=== PATIENT | female | born 2000 | race Caucasian/White ===

== ENCOUNTER 2020-11-17 23:46 | Emergency (ER) | payer OTHER, SELFPAY ==
--- NOTE | ~2020-11-17 | US_ITS ---
EXAMINATION: US ABDOMEN LIMITED CLINICAL INFORMATION: Epigastric abdominal pain.. COMPARISON: None TECHNIQUE: Real-time imaging of the gallbladder. FINDINGS: There is a stone within the dependent gallbladder. No gallbladder wall thickening. Sonographic Cassidy sign is positive. US/US abdomen limited IMPRESSION: Cholelithiasis. No imaging evidence of cholecystitis. The positive sonographic Cassidy sign in the setting is nonspecific.
--- NOTE | ~2020-11-17 | CT_ITS ---
EXAMINATION: CT ABDOMEN AND PELVIS WITH CONTRAST CLINICAL INFORMATION: Epigastric abdominal pain COMPARISON: None TECHNIQUE: Multidetector volumetric images were obtained from the superior aspect of the liver through the pubic symphysis following administration 85 mL of Omnipaque 350 intravenous contrast. Sagittal and coronal reformatted images were obtained on the technologist's workstation. Oral contrast: No This CT examination was performed using dose optimization techniques as appropriate, variously including the following: *Automated exposure control *Adjustment of mA and/or kV according to patient size (this includes techniques or standardized protocols for targeted exams where dose is matched to indication/reason for exam; i.e. extremities or head) *Use of iterative reconstruction technique DLP: 1544 mGy-cm FINDINGS: LUNG BASES: The visualized lung bases are unremarkable. LIVER, GALLBLADDER, AND BILIARY TREE: The liver is normal in size, shape, and attenuation. No focal hepatic lesion or biliary ductal dilatation is present. Cholelithiasis. No pericholecystic fluid. PANCREAS: Unremarkable. SPLEEN: Unremarkable. ADRENAL GLANDS: Unremarkable. KIDNEYS AND URETERS: The kidneys are normal in size, shape, and attenuation. No hydronephrosis, hydroureter. Curvilinear calcification present in the lower pole of the LEFT kidney. No perinephric stranding. BLADDER: Unremarkable. GASTROINTESTINAL TRACT: The small and large bowel are unremarkable. The appendix is unremarkable. ABDOMINAL WALL: No significant hernia is appreciated. LYMPH NODES: Normal. VASCULAR: Unremarkable. PELVIC VISCERA: Uterus and adnexa unremarkable. OSSEOUS STRUCTURES: Unremarkable. CT/CT abdomen pelvis w con IMPRESSION: Cholelithiasis without CT imaging appearance of cholecystitis. Nonobstructive curvilinear calculus, lower pole LEFT kidney.
[2020-11-17 23:57] VITALS: BP 154/94; PULSE 96; RESP 17; TEMP 36.5; O2SAT 100; BMI 63.5
[2020-11-18] MEDS: Morphine Sulfate 4 MG/ML CARTRIDGE IVPUSH (00:25)
--- NOTE | 2020-11-18 00:30 | ED_ITS ---
HPI - Abdominal Pain General Chief Complaint: Abdominal Pain Stated Complaint: ABD pain Time Seen by Provider: 11/17/20 23:52 Source: patient and family Mode of arrival: ambulatory Limitations: no limitations History of Present Illness HPI narrative: 20-year-old female with a past medical history obesity and asthma who recently gave on 10/26/2020 and had no complications presenting to the ED with complaints of epigastric abdominal pain that radiates to her back with associated nausea/vomiting/diarrhea for the past 2 days worse today. She reports intermittent headaches today although nothing she would complain about she reports very mild not really causing her any pain and no headache at this time. She denies any fevers, chills, dizziness, changes in vision, chest pain, shortness of breath, palpitations, dysuria, hematuria, abnormal vaginal discharge, black or bloody stools, lower extremity edema or extremity edema, calf tenderness, recent travel or sick contacts or bad food exposure. MD elicited complaint: abdominal pain Pertinent past history: other (Recently gave on 10/26/2020) Onset (ago): day(s) (2 days) Pain Consistency: constant Location: epigastric Severity: moderate Quality: sharp Radiation: back Exacerbating factors: nothing Relieving factors: nothing Associated symptoms: nausea, vomiting and diarrhea Related Data Patient : No Home Medications Medication Instructions Recorded Confirmed acetaminophen 500 mg tablet 1 tab PO Q4H PRN 11/18/20 11/18/20 ibuprofen 600 mg tablet 1 tab PO Q6H PRN 11/18/20 11/18/20 vitamin with calcium 1 tab PO DAILY 11/18/20 11/18/20 no.72-iron 27 mg-folic acid 1 mg tablet ( Vitamins Plus Low Iron) Allergies Allergy/AdvReac Type Severity Reaction Status Date / Time No Known Allergies Allergy Verified 11/18/20 00:01 Review of Systems Review of Systems Constitutional : No Weight loss, No Fever, No Chills, No Night Sweats, No Fatigue, NoMalaise ENT/Mouth: No ear pain, No sore throat, No Difficulty swallowing Cardiovascular : No Chest Pain, No SOB, No Dyspnea on Exertion, No Orthopnea, No Edema, No Palpitations Respiratory : No Cough, No Sputum, No Wheezing, No Dyspnea Gastrointestinal : Positive nausea/vomiting/diarrhea and epigastric abdominal pain, No blood streaked emesis, No coffee-ground emesis, No gross hematemesis, No blood streak stool, No gross hematochezia, No Melena Genitourinary : No irregular bleeding, No Dysuria, No Urinary Frequency, No Hematuria, No Urinary Incontinence, No Urgency, No Flank Pain Musculoskeletal : No joint pain, No Myalgias, No Joint Swelling Skin : No Skin Lesions, No rash Neuro : No Weakness, No Numbness, No Paresthesias, No Loss of Consciousness, No Dizziness, No Headache Psych : No Social Issues, Heme/Lymph: No Bruising, No Bleeding,No Lymphadenopathy Endocrine : No Polyuria, No Polydipsia, No Temperature Intolerance Yes all other systems are reviewed and are negative Physical Exam Vital Signs: Vital Signs: Last Vital Signs Temp 97.7 F 11/17/20 23:57 Pulse 75 11/18/20 00:43 Resp 15 11/18/20 00:43 BP 150/95 H 11/18/20 00:43 Pulse Ox 100 11/18/20 00:43 Body Mass Index 63.5 vital signs have been reviewed as normal and appeared to be correct. Blood pressure hypertensive 154/94 Heart rate normal. Respiration rate normal. Temperature normal. Oxygen saturation normal. Appearance: Alert. Oriented X3. No acute distress. Head: Normal external exam. Normocephalic. Eyes: PERRLA. EOMI. Conjunctiva and sclera normal. Eyelids normal. ENT: Pharynx normal. Uvula midline. Moist mucous membranes. Neck: Normal inspection. Neck supple. FROM. No adenopathy. No meningeal signs. CVS: Normal heart rate and rhythm. Heart sound normal. No murmurs noted. Pulses normal throughout. Respiratory: No respiratory distress. Painless inspiration. Breath sounds normal. No wheezes/rales/rhonchi noted. Chest nontender. No accessory muscle usage noted or decreased air movement noted. Abdomen: Soft and mild tenderness to palpation to epigastric area. Nondistended. No guarding. No rigidity. Bowel sounds normal in all 4 quadrants. No distention noted. No organomegaly noted. No visible injury noted. No rebound tenderness. Negative Rovsing sign. Negative obturator's sign. Negative psoas sign. Negative Cassidy sign. Back: No CVA tenderness. Full range of motion noted. Skin: Skin warm and dry. Normal skin color. Normal skin turgor. No rashes/lesions/lacerations noted. Extremities: No lower extremity edema or calf tenderness is noted. Extremities exhibit normal range of motion. Extremities nontender. Neuro: Oriented X 3. No motor deficit. No sensory deficit. Reflexes normal. Normal steady gait. Course Course Course Narrative: 23:55pm - 20-year-old female who recently gave on 10/26/2020 and had no complications presenting to the ED with complaints of epigastric abdominal pain that radiates to her back with associated nausea/vomiting/diarrhea for the past 2 days worse today. Also admits to intermittent headaches that started today although very mild. Denies a headache at this time. Patient is noted to be hypertensive at 154/94. Pulse is 96. Otherwise all other vitals are within normal limits. Patient is afebrile with a temperature of 97.7 degrees. Plan: Labs, UA, UHCG, abdominal ultrasound. Provide some gentle hydration with IV fluids with 4 mg of Zofran and 4 mg of morphine and re-evaluate. Reevaluation(s) Reevaluation #1: - labs return patient with an elevated white blood cell count [id number]. Mild anemia. Elevated platelet count at 406. Elevated total bilirubin at 2.8. AST 274. ALT 444. Alkaline phosphate 342. LDH 461. Otherwise all other labs are within normal limits. - US revealed Choleithiasis. No imaging evidence of cholecystitis. The positive sonographic Cassidy sign in the setting is nonspecific. - I added and hepatitis panel and coagulation study. - I consulted with Dr.Zerbe beckham [facility] due to patient is and he reported that this could be preeclampsia until proven otherwise and he instructed me to place a Haro catheter and start the patient on magnesium 4 g loading dose over 20 minutes with a maintenance dose of 2 grams/hour, monitor the patient's I/O and to not give more than 120cc's/hr and transfer to [facility]. Therefore will consult with [facility] for transfer at this time for possible preeclampsia. Patient understands agrees with this plan. Time: 01:46 Reevaluation #2: - OBGYN Dr. Agosto and Dr. Casanova are the accepting doctors at this time. - they recommended giving the patient 50 cc's of IV fluids in our instead of the 120 cc's/hour patient has received approximately 400 cc of IV fluids total since she has been here. - Haro is being placed. She is currently receiving magnesium. She reports her pain is under control. Plan on transferring at this time. Time: 01:58 Critical Care Time Critical Care Time Critical Care Time: Yes Total Critical Care Time: 60 Attestation: I personally attest to this time spent taking care of the patient Discharge Plan Discharge Clinical Impression: Cholelithiasis, LFT elevation, Pre-eclampsia, Patient Disposition: [facility] Transfer Details: [facility] Prescriptions: No Action acetaminophen 500 mg tablet 1 tab PO Q4H PRN (Reason: pain) RF: 0 ibuprofen 600 mg tablet 1 tab PO Q6H PRN (Reason: mild pain) RF: 0 Vitamin Plus Low Iron 27 mg iron- 1 mg tablet 1 tab PO DAILY RF: 0 PMFSH Past Medical History Attestation statement: The following information was validated with the patient. Surgical History History of tonsillectomy Social History Social History Use of substances other than those prescribed or required for medical reasons: No Advance Directives: No Advance Directives Information Provided: No Patient : No
[2020-11-18 00:34] LABS: MANUAL DIFF FLAG NO
[2020-11-18 00:35] LABS: Basophils Percent Auto 0.3 % (0-2); Eosinophils Absolute Auto 0.3 X10*3/uL (0.0-0.4); Eosinophils Percent Auto 2.8 % (0-4); Hematocrit 35.5 % (37-47); Hemoglobin 11.1 g/dl (12.0-16.0); Imm Gran Abs Auto 0.08 X10*3/uL (0.00-0.03); Imm Gran Pct Auto 0.7 % (0.0-0.4); Lymphocytes Absolute Auto 2.8 X10*3/uL (1.2-4.9); Mean Corpuscular HGB Conc 31.3 g/dl (31.0-35.0); Mean Corpuscular Hemoglobin 27.8 pg (27.0-33.0); Mean Corpuscular Volume 88.8 fL (80-98); Monocytes Absolute Auto 0.6 X10*3/uL (0.1-1.2); Monocytes Percent Auto 5.4 % (2-11); Neutrophils Absolute Auto 7.9 X10*3/uL (2.0-8.3); Neutrophils Percent Auto 66.8 % (45-73); Platelet Count 406 X10*3/uL (160-400); Red Cell Distribution Width 14.9 % (11.0-16.0); White Blood Count 11.8 X10*3/uL (4.8-10.8)
--- NOTE | 2020-11-18 00:36 | PC.NURSE ---
IV access obtained, labs obtained and sent for processing. pt vomited x 1, then medicated per JUN. US at bedside at this time. Pt stretcher in low locked position, call miller within reach, management scientist at bedside.
[2020-11-18] MEDS: 0.9 % Sodium Chloride 1,000 ML 999 ML IVCONT (00:40)
[2020-11-18 00:43] VITALS: BP 150/95; PULSE 75; RESP 15; O2SAT 100
[2020-11-18 01:04] LABS: Alanine Aminotransferase 444 U/L (0-31); Albumin Level 3.9 g/dL (3.5-5.0); Alkaline Phosphatase 342 U/L (39-117); Anion Gap 14 (12-20); Aspartate Amino Transferase 274 U/L (5-31); Bilirubin Total 2.8 mg/dL (0.0-1.0); Blood Urea Nitrogen 9 mg/dL (9-16); Calcium 9.2 mg/dL (8.4-10.2); Carbon Dioxide 25 mmol/L (22-29); Chloride 105 mmol/L (96-108); Creatinine Clr Calc Pharmacy 180.8; Estimated Glomerular Filt Rate > 60; Glucose Random 91 mg/dL (60-115); Lactate Dehydrogenase 461 U/L (122-220); Lipase 29 U/L (8-78); Magnesium 2.1 mg/dL (1.6-2.6); Potassium 4.1 mmol/L (3.3-5.1); Sodium 140 mmol/L (135-145); Total Protein 7.1 g/dL (6.5-8.0); Triglycerides 69 mg/dL
--- NOTE | 2020-11-18 01:39 | P.CONOB_ITS ---
ONCOLOGY SPECIALIST - CN: HPI Data of Consult Consult date: 11/18/20 Primary Care Provider: None Physician Consult Narrative Narrative: I was consulted by Vidal Martin PA regarding Yanet Dalton who is a 20 year old female who presented the emergency room complaining of nausea and vomiting of 2 days duration associated with epigastric pain radiating to the back. No fever or chills. Blood pressure is 150s/90s, elevated liver function, AST/ALT 75/ 444 and LDH 461 Normal creatinine, within normal, no leukocytosis. Ultrasound showed cholelithiasis in the dependent area of gallbladder no signs of cholecystitis cc:: CC: CLOTH CLASSER - Review of Systems Review of Systems ROS Unobtainable: All systems reviewed & are unremarkable except as noted in HPI and below Cardiovascular: Denies Palpatations, Loss of consciousness or Chest pain Respiratory: Denies Cough, Wheezing or Shortness of breath Musculoskeletal: Denies Low back pain Gastrointestinal: Denies Heartburn, Constipation, Diarrhea, Nausea or Vomiting Genitourinary: Denies Pain with urination, Burning with urination or Urinary frequency Neurological: Denies Migranes Psychological: Denies Depression OB [facility] Surgical History Surgical History History of tonsillectomy Social History Social History Use of substances other than those prescribed or required for medical reasons: No Advance Directives: No Advance Directives Information Provided: No Patient : No Meds Allergies Allergy/AdvReac Type Severity Reaction Status Date / Time No Known Allergies Allergy Verified 11/18/20 00:01 Active Medications: Current Medications Generic Name Dose Route Start Last Admin Trade Name Freq PRN Reason Stop Dose Admin Sodium Chloride 1,000 mls @ 999 mls/hr 11/18/20 00:45 11/18/20 00:40 Ns IVCONT 11/18/20 01:45 999 mls/hr .Q1H1M SANCHO Administration Magnesium Sulfate 4 gm in 50 mls @ 150 mls/hr 11/18/20 01:38 Magnesium Sulfate/H2o IV 11/18/20 01:57 ONCE ONE Magnesium Sulfate 20 gm in 500 mls @ 50 mls/hr 11/18/20 01:45 Magnesium Sulfate/H2o IV .Q10H SANCHO 2 GM/HR Pharmacy Consult 1 each 11/18/20 01:19 Consult Rx Perform Med Rec MISCELLANE ONCE PRN Consult order Home Medications Medication Instructions Recorded Confirmed Last Taken Type acetaminophen 500 mg tablet 1 tab PO Q4H PRN 11/18/20 11/18/20 Unknown History ibuprofen 600 mg tablet 1 tab PO Q6H PRN 11/18/20 11/18/20 Unknown History vitamin with calcium 1 tab PO DAILY 11/18/20 11/18/20 Unknown History no.72-iron 27 mg-folic acid 1 mg tablet ( Vitamins Plus Low Iron) ONCOLOGY SPECIALIST Physical Exam Vitals Vital signs: Temp Pulse Resp BP Pulse Ox 97.7 F 75 15 150/95 H 100 11/17/20 23:57 11/18/20 00:43 11/18/20 00:43 11/18/20 00:43 11/18/20 00:43 Body Mass Index 63.5 Constitutional General Appearance: Healthy appearing, Well-nourished and Well-developed Psychiatric Mood and Affect: active and alert, normal mood and normal affect Skin Appearance: No rashes and No lesions Lungs Respiratory Effort: No intercostal retractions Auscultation: Clear to auscultation Cardiovascular Auscultation: RRR Abdomen Auscultation/Inspection/Palpation: Normal bowel sounds, Soft and Non-distended Female Genitalia (Pelvic) Exam: Deferred Additional Comments: Per Cardio ANGE Drake epigastric and right upper quadrant tenderness ONCOLOGY SPECIALIST - Results Labs CBC & Chem 7: 11/18/20 00:29 11/18/20 00:29 Labs: Short CBC 11/18/20 Range/Units 00:29 WBC 11.8 H (4.8-10.8) X10*3/uL Hgb 11.1 L (12.0-16.0) g/dl Hct 35.5 L (37-47) % Plt Count 406 H (160-400) X10*3/uL BMP 11/18/20 00:29 Sodium 140 Potassium 4.1 Chloride 105 Carbon Dioxide 25 BUN 9 Creatinine 0.77 Calcium 9.2 Liver Function 11/18/20 Range/Units 00:29 Total Bilirubin 2.8 H (0.0-1.0) mg/dL AST 274 H (5-31) U/L ALT 444 H (0-31) U/L Alkaline Phosphatase 342 H (39-117) U/L Albumin 3.9 (3.5-5.0) g/dL Assessment and Plan (1) Preeclampsia: Status: Acute (2) Cholelithiasis: Status: Acute Discussed with Greg Ramos that the patient clinical presentation could be related to cholelithiasis but could fit criteria for preeclampsia with severe features , recommended magnesium sulfate 4 g loading dose over 20 minutes with maintenance dose of 2 grams/hour, I/O, total input less than 120 cc/hour, Haro catheter, transfer to [place] [facility] I was consulted on the phone regarding this patient, I did not see nor examined the patient
--- NOTE | 2020-11-18 01:46 | PC.NURSE ---
@[id number] REQUEST TO CALL [facility] BY [facility] FOR TX OF THIS PT CANDIE ANSWERS, TAKES PT INFO THEN ASKS TO SPEAK WITH PEGGY WOODS TAKES OVER CALL RIGHT AWAY
--- NOTE | 2020-11-18 01:54 | PC.NURSE ---
@01:54 RETURN CALL FROM [facility] PT TX LINE ASKING TO SPEAK WITH PEGGY WOODS SPEAKING WITH THEM @ THIS TIME
[2020-11-18] MEDS: iohexoL 350 MG/ML 100 ML INFUS..BTL 85 ML IV (01:55)
[2020-11-18] MEDS: Magnesium Sulfate/H2O 4 GM/50 ML PIGGYBACK IV (02:00)
[2020-11-18 02:03] VITALS: BP 135/81; PULSE 93; RESP 24; O2SAT 97
--- NOTE | 2020-11-18 02:07 | PC.NURSE ---
Pt rec'd about 400cc of NS infusion prior to Olamide CASSIDY informing this RN to stop fluid admin
--- NOTE | 2020-11-18 02:13 | PC.NURSE ---
PER PEGGY OROZCO MD IS DR ALATORRE, WE ARE AWAITING ROOM ASSIGNMENT FROM [facility] @ THIS TIME
[2020-11-18 02:15] LABS: Prothrombin Time 11.9 SEC (9.9-13.0)
--- NOTE | 2020-11-18 02:15 | PC.NURSE ---
drained 600ml of urine from macedo cath Per Olamide CASSIDY, do not give IVF at 50ml/hr.
[2020-11-18 02:16] VITALS: BP 131/72; PULSE 91; RESP 24; O2SAT 97
--- NOTE | 2020-11-18 02:16 | PC.NURSE ---
seizure pads in place on both side rails of stretcher for seizure precautions
[2020-11-18 02:21] LABS: COVID-19 Test Negative (Negative); IDNOW Serial# 9DD0AD1C
--- NOTE | 2020-11-18 02:26 | PC.NURSE ---
@[phone] RETURN CALL FROM [facility] AT [facility] PT TX LINE WITH ROOM ASSIGNMENT STACI WOMEN ROOM 1816 RN TO RN SHOULD BE CALLED TO [phone]
[2020-11-18 02:28] LABS: Glucose Urine UA NEG (NEG); Leukocyte Esterase Urine NEG (NEG); Nitrite Urine NEG (NEG); Specific Gravity - Urine <= 1.005 (1.005-1.025); Urine Blood NEG (NEG); Urine Ketones NEG (NEG); Urine Protein NEG (NEG-TRACE)
[2020-11-18 02:31] LABS: Appearance Urine CLEAR; Color Urine YELLOW; UPreg QC Valid YES; Urine Pregnancy NEGATIVE (NEGATIVE)
[2020-11-18 02:33] VITALS: BP 131/81; PULSE 85; RESP 25; O2SAT 97
[2020-11-18 02:51] VITALS: BP 139/81; PULSE 91; RESP 14; O2SAT 98
[2020-11-20 08:12] LABS: HBc Num1 0.09 S/CO (0.00-0.79); HBsAGNum1 0.21 S/CO (0.00-0.99); Hepatitis B Core Antibody Nonreactive (Nonreactive); Hepatitis B Surface Antigen Negative (Negative); ~HepC Num1 0.26 S/CO (0.00-0.79); ~Hepatitis C Antibody Nonreactive (Nonreactive)
[2020-11-20 08:28] LABS: HBS Num1 97.45 mIU/mL (0-7.99); ~Hepatitis B Surface Antibody REACTIVE (Nonreactive)
[2020-11-22 04:56] LABS: Hepatitis A Antibody IgM 0.11 Index (0-0.79); ~Hepatitis A Antibody IgM Nonreactive (Nonreactive)
== END 2020-11-18 03:09 | disposition short-term general hospital (02) ==
PROVIDERS: Physician Assistant Medical; Student in an Organized Health Care Education/Training Program; Emergency Provider Emergency Medicine Emergency Medical Services
DX: O99.63 Diseases of the digestive system complicating the puerperium (principal); K80.20 Calculus of gallbladder without cholecystitis without obstruction; O14.90 Unspecified pre-eclampsia, unspecified trimester; R79.89 Other specified abnormal findings of blood chemistry; Z20.822 Contact with and (suspected) exposure to COVID-19
CPT/HCPCS: 36415; 51702; 74177; 76705; 80053; 81003; 81025; 82248; 83615; 83690; 83735; 84478; 85025; 85610; 86704; 86706; 86709; 86803; 87340; 87635; 96361; 96365; 96375; 99285; 99291; J2270; J2405; J3475; Q9967